=== PATIENT | male | born 1980 | race Caucasian/White ===

== ENCOUNTER 2021-07-09 18:32 | Emergency (ER) | payer OTHER, SELFPAY ==
[2021-07-09 18:48] VITALS: BP 102/61; PULSE 65; RESP 16; TEMP 36.7; O2SAT 100
--- NOTE | 2021-07-09 19:01 | ED.SKABFB ---
HPI - Skin/Abscess/Foreign Bdy General Chief complaint: Skin/Abscess/Foreign Body Stated complaint: poison alexis Source: patient and RN notes reviewed Limitations: no limitations History of Present Illness HPI narrative: The patient, previously mostly healthy, presents with skin eruption. 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 No fever, redness, streaking-there is some discharge. Discussed plan to provide Medrol Dosepak, using 2 packages for a total of 12-day course Related Data Home Medications Medication Instructions Recorded Confirmed [id number] K tablet PO 07/09/21 [Adults Multivitamin] Allergies Allergy/AdvReac Type Severity Reaction Status Date / Time No Known Allergies Allergy Verified 07/09/21 18:46 Review of Systems Review of Systems: General/Constitutional: No weight loss,fever Eyes: N0: Redness,discharge Ears/Nose/Throat: No: Epistaxis,ear discharge Respiratory: Denies: Hemoptysis Gastrointestinal: No Vomiting, Bleeding-rectal Skin: No Lumps,REPORTS eruption Neurologic: No Focal Weakness,Sz Hematologic: Denies: Petechiae/Purpura Psychiatric: No: Suicida ideationl All Other Systems: Reviewed and Negative PMFSH Comments At time of signature, agree with nursing past medical, surgical, social and family history. There is no relevant family history pertinent to the presenting complaint Exam Narrative: General Appearance: Well appearing, Conjunctiva clear Mouth/Throat: Normal appearing, Normal lips,: Supple Skin: Classic maculopapular and PV eruption with linear components, on trunk and extremities Respiratory: Airway patent, No respiratory distress Abdomen: Soft, Non-tender, Musculoskeletal: Full ROM Neurological: A&O x3, Normal affect Course Vital Signs Vital signs: Vital Signs Temperature 98.1 F 07/09/21 18:48 Pulse Rate 65 07/09/21 18:48 Respiratory Rate 16 07/09/21 18:48 Blood Pressure 102/61 07/09/21 18:48 Pulse Oximetry 100 07/09/21 18:48 Temperature 98.1 F 07/09/21 18:48 Pulse Rate 65 07/09/21 18:48 Respiratory Rate 16 07/09/21 18:48 Blood Pressure 102/61 07/09/21 18:48 Pulse Oximetry 100 07/09/21 18:48 Discharge Plan Discharge Clinical Impression: Pruritic condition Contact dermatitis Qualifiers: Contact dermatitis type: unspecified Contact dermatitis trigger: non-food plants Qualified Code(s): L25.5 - Unspecified contact dermatitis due to plants, except food Patient Disposition: Home, Self-Care Condition: Stable Instructions: Contact Dermatitis (ED) Prescriptions: New methylprednisolone [Methylpred DP] 4 mg tablets,dose pack See Rx Instructions .ROUTE .COMPLEX Qty: 42 RF: 0 No Action Adults Multivitamin 18 mg iron-400 mcg-25 mcg Tablet PO RF: 0 Follow-up/Referrals: UNKNOWN,DOCTOR [Primary Care Provider] -
== END 2021-07-09 19:09 | disposition home or self-care (01) ==
PROVIDERS: Emergency Provider Emergency Medicine
DX: L25.5 Unspecified contact dermatitis due to plants, except food (principal)
CPT/HCPCS: 99203; G0463

== ENCOUNTER 2021-07-11 11:44 | Emergency (ER) | payer OTHER, SELFPAY ==
[2021-07-11 11:50] VITALS: BP 119/65; PULSE 72; RESP 18; TEMP 36.8; O2SAT 99
--- NOTE | 2021-07-11 13:00 | ED.GENADULT ---
HPI - General Adult General Chief complaint: Allergic Reaction Stated complaint: RASH Time Seen by Provider: 07/11/21 11:51 Source: patient Mode of arrival: ambulatory Limitations: no limitations History of Present Illness HPI narrative: Patient presents with chief complaint of generalized. 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 Patient states that he started a steroid pack 2 days ago but the rash has been increasing. Patient has not been taking any antihistamines. Patient reports no significant swelling to his eyelids and cheeks. He denies any lip or throat involvement. He denies any chest pain, shortness of breath, difficulty swallowing or itching or swelling of his mouth or throat. Patient denies any other symptoms or concerns. Related Data Home Medications Medication Instructions Recorded Confirmed [id number] K tablet PO 07/09/21 [Adults Multivitamin] Allergies Allergy/AdvReac Type Severity Reaction Status Date / Time No Known Allergies Allergy Verified 07/11/21 12:04 Review of Systems Review of Systems: CONSTITUTIONAL: Denies fever, chills, or sweats. EYES: Denies visual changes, redness, or discharge. ENT: Denies rhinorrhea, congestion, sore throat, or otalgia. CARDIOVASCULAR: Denies chest pain, palpitations, or edema. RESPIRATORY: Denies cough or dyspnea. GASTROINTESTINAL: Denies abdominal pain, nausea, vomiting, or diarrhea. GENITOURINARY: Denies dysuria or hematuria. SKIN: Reports rash and itching. MUSCULOSKELETAL: Denies back pain, joint pain, or myalgia. NEUROLOGIC: Denies headache, numbness, dizziness, or weakness. PSYCHIATRIC: Denies anxiety or depression. Exam Narrative: GENERAL: Well-appearing, well-nourished, and in no acute distress. HEAD: Normocephalic, atraumatic. EYES: PERRLA and EOMI.Eyelids swollen. Sclera clear without erythema or drainage. Patient able to open and close eylids. ENT: Nares clear, no rhinorrhea or epistaxis. Mucous membranes moist. Oropharynx without tonsillar hypertrophy exudate or other lesions. Bilateral TMs pearly conde nonbulging. Lips appropriate without swelling. NECK: Supple. No adenopathy or masses. No stridor. CHEST: Clear to auscultation. No respiratory distress. No wheezes rales or rhonchi HEART: Regular rate and rhythm. No murmur heard. Normal peripheral pulses. EXTREMITIES: Normal range of motion. No edema. SKIN: Generalized pruritic rash contact dermatitis consistent with poison alexis. Warm, dry, no rash. NEURO: No focal deficits. Alert and oriented x3. PSYCH: Normal mood and affect. Course Vital Signs Vital signs: Vital Signs Temperature 98.3 F 07/11/21 11:50 Pulse Rate 72 07/11/21 11:50 Respiratory Rate 18 07/11/21 11:50 Blood Pressure 119/65 07/11/21 11:50 Pulse Oximetry 99 07/11/21 11:50 Temperature 98.3 F 07/11/21 11:50 Pulse Rate 55 L 07/11/21 13:55 Respiratory Rate 16 07/11/21 13:55 Blood Pressure 98/57 L 07/11/21 13:55 Pulse Oximetry 100 07/11/21 13:55 Medical Decision Making MDM Narrative Medical decision making narrative: Patient does not have any oral or throat involvement. No trouble swallowing or breathing. Patient received Solu-Medrol injection. Reports decrease in swelling, itching .patient states he is ready to be discharged home. Patient also receiving Pepcid. Patient will be placed on Pepcid and Zyrtec along with the Medrol Dosepak. Patient instructed to return to emergency department immediately if he has worsening or emergent symptoms or any involvement of his mouth or throat. Patient states that he is ready to be discharged home he denies any adverse symptoms. Vital Signs Vital Signs: Vital Signs Temperature 98.3 F 07/11/21 11:50 Pulse Rate 72 07/11/21 11:50 Respiratory Rate 18 07/11/21 11:50 Blood Pressure 119/65 07/11/21 11:50 Pulse Oximetry 99 07/11/21 11:50 Temperature 98.3 F 07/11/21 11:50 Pulse Rate 55 L 07/11
[2021-07-11] MEDS: FAMOTIDINE 20 MG TABLET PO (13:29)
[2021-07-11] MEDS: methylPREDNISolone SOD SUCC 125 MG VIAL IM (13:29)
[2021-07-11 13:55] VITALS: BP 98/57; PULSE 55; RESP 16; O2SAT 100
== END 2021-07-11 13:59 | disposition home or self-care (01) ==
LOC: ANHED 13:15
PROVIDERS: Emergency Provider Family Medicine
DX: L23.7 Allergic contact dermatitis due to plants, except food (principal)
CPT/HCPCS: 96372; 99283; A9270; J2930